=== PATIENT | female | born 1935 | race Caucasian/White ===

== ENCOUNTER 2018-02-22 12:09 | Day surgery (SDC) | payer MEDICARE ==
[2018-02-22] MEDS: NS 1,000 ML IV (06:00)
[2018-02-22] MEDS ORDERED: PROPOFOL 200 MG/20 ML VIAL As Ordered ×2 (12:11→13:02)
[2018-02-22] MEDS ORDERED: LIDOCAINE 2% INJ 100 MG/5 ML SDV (FOR ANES.) As Ordered (12:12)
[2018-02-22] MEDS ORDERED: GLYCOPYRROLATE INJ 0.2 MG/ML 2 ML VIAL As Ordered (13:44)
== END 2018-02-22 14:32 | disposition home or self-care (01) ==
LOC: M OPP 12:09
DX: Z86.010 Personal history of colon polyps (principal); K57.30 Diverticulosis of large intestine without perforation or abscess without bleeding; D12.6 Benign neoplasm of colon, unspecified
CPT/HCPCS: 45380

== ENCOUNTER 2019-02-23 09:14 | Day surgery (SDC) | payer MEDICARE ==
[~2019-02-23] VITALS: Ht 165.1 cm; Wt 96.1 kg
[~2019-02-23 09:14] MED LIST: ALEN70TA74 PO; ASPI81TA85 PO; LEVO100T5 PO; LISI10TA4 PO; NS 1,000 ML IV ONE; SIMV40TA20 PO
[2019-02-23] MEDS ORDERED: LIDOCAINE 2% INJ 100 MG/5 ML SDV (FOR ANES.) As Ordered ONE (09:28)
[2019-02-23] MEDS ORDERED: PROPOFOL 200 MG/20 ML VIAL As Ordered ONE (09:28)
[2019-02-23 12:45] VITALS: BP 121/61
--- NOTE | 2019-02-23 15:50 | ROOR ---
Patient Name: Fatemeh Johnson Procedure Date: 02/23/2019 10:48 AM Date of : 1935 Age: 83 Room: [facility] Gender: Female Note Status: Finalized Procedure: Colonoscopy Indications: Last colonoscopy: February 2018, Therapeutic procedure for known colon adenoma Providers: Saad Montoya MD Referring MD: Dacia MARAVILLA MD Requesting Provider: Medicines: Monitored Anesthesia Care Complications: No immediate complications. Procedure: Pre-Anesthesia Assessment: - Prior to the procedure, a History and Physical was performed, and patient medications and allergies were reviewed. The patient is competent. The risks and benefits of the procedure and the sedation options and risks were discussed with the patient. All questions were answered and informed consent was obtained. Patient identification and proposed procedure were verified by the physician, the nurse and the anesthesiologist in the procedure room. Mental Status Examination: alert and oriented. CV Examination: regular rate and rhythm. Prophylactic Antibiotics: The patient does not require prophylactic antibiotics. Prior Anticoagulants: The patient has taken no previous anticoagulant or antiplatelet agents. ASA Grade Assessment: II - A patient with mild systemic disease. After reviewing the risks and benefits, the patient was deemed in satisfactory condition to undergo the procedure. The anesthesia plan was to use monitored anesthesia care (MAC). Immediately prior to administration of medications, the patient was re-assessed for adequacy to receive sedatives. The heart rate, respiratory rate, oxygen saturations, blood pressure, adequacy of pulmonary ventilation, and response to care were monitored throughout the procedure. The physical status of the patient was re-assessed after the procedure. The Colonoscope was introduced through the anus and advanced to the cecum, identified by appendiceal orifice and ileocecal valve. The colonoscopy was performed without difficulty. The patient tolerated the procedure well. The quality of the bowel preparation was excellent. Findings: The perianal and digital rectal examinations were normal. A 6 mm polyp was found in the distal ascending colon. The polyp was sessile. The polyp was removed with a hot snare. Resection and retrieval were complete. Estimated blood loss: none. A 25 mm polyp was found at 80 cm proximal to the anus. The polyp was carpet-like. Polypectomy was attempted, initially using a hot snare. Polyp resection was incomplete with this device. This intervention then required a different device and polypectomy technique. The polyp was removed with a cold snare. Polyp resection was incomplete. The resected tissue was retrieved. I attempted to remove the polyp with the hot snare after injecting eleview but the snare slipped over the polyp rather than resecting tissue. I removed multiple fragments with the jumbo forceps and then also removed fragments with the cold snare and hot snare. Portions of the polyp were then cauterized with the tip of the snare. Area was tattooed with an injection of 3 mL of Spot (carbon black) in three aliquots proximal to the polyp. Multiple medium-mouthed diverticula were found in the splenic flexure, transverse colon, hepatic flexure and ascending colon. Many medium-mouthed diverticula were found in the sigmoid colon and descending colon. Impression: - One 6 mm polyp in the distal ascending colon, removed with a hot snare. Resected and retrieved. - One 25 mm polyp at 80 cm proximal to the anus, removed with a cold snare. Incomplete resection. Resected tissue retrieved. Tattooed. - Diverticulosis at the splenic flexure, in the transverse colon, at the hepatic flexure and in the ascending colon. - Diverticulosis in the sigmoid colon and in the descending colon. Recommendation: - Discharge patient to home. - Resume previous diet. - Continue present medications. - Await pathology results. - Return to my office at appointment to be scheduled. Saad Montoya MD Saad Montoya MD 02/23/2019 12:33:33 PM Electronically signed by Saad Montoya MD Number of Addenda: 0 Note Initiated On: 02/23/2019 10:48 AM Estimated Blood Loss: Estimated blood loss was minimal.
== END 2019-02-23 12:53 | disposition home or self-care (01) ==
LOC: M OPP 09:14
PROVIDERS: ATTEND Surgery
DX: K57.30 Diverticulosis of large intestine without perforation or abscess without bleeding (principal); K63.5 Polyp of colon; Z86.010 Personal history of colon polyps; Z09 Encounter for follow-up examination after completed treatment for conditions other than malignant neoplasm

== ENCOUNTER → 2020-01-24 | Outpatient (REF) | payer MEDICARE ==
[~2020-01-24] MED LIST changes: -ASPI81TA85 PO; +ASPI81TA86 PO; -NS 1,000 ML IV ONE
== END ==
LOC: M LAB REF 17:57
PROVIDERS: ATTEND Physician Assistant
DX: D23.4 Other benign neoplasm of skin of scalp and neck (principal)

== ENCOUNTER → 2020-11-14 | Outpatient (REF) | payer MEDICARE ==
[~2020-11-14] MED LIST changes: -ALEN70TA74 PO; +ALEN70TA82 PO; +LISI10TA22 PO; -LISI10TA4 PO
[2020-11-16 17:07] LABS: Lyme Disease IgG/IgM Antibodie <0.91 ISR (0.00-0.90); Lyme Disease IgM Ab Quantitati <0.80 index (0.00-0.79)
== END ==
LOC: M LAB REF 16:54
PROVIDERS: ATTEND Internal Medicine
DX: M15.9 Polyosteoarthritis, unspecified (principal); M25.50 Pain in unspecified joint

== ENCOUNTER → 2020-12-12 | Outpatient (REF) | payer MEDICARE ==
[~2020-12-12] MED LIST changes: +PRED5PAK PO; +ROSU5TAB5 PO
== END ==
LOC: M LAB REF 11:11
PROVIDERS: ATTEND Internal Medicine
DX: M15.9 Polyosteoarthritis, unspecified (principal)

== ENCOUNTER → 2020-12-21 | Outpatient (CLI) | payer MEDICARE | LOC: M LABSMTC 09:42 | PROVIDERS: ATTEND Anesthesiology | DX: Z01.812 Encounter for preprocedural laboratory examination (principal); Z20.822 Contact with and (suspected) exposure to COVID-19 ==

== ENCOUNTER 2020-12-26 08:22 | Day surgery (SDC) | payer MEDICARE ==
[~2020-12-26] VITALS: Ht 165.1 cm; Wt 94.8 kg
[~2020-12-26 08:22] MED LIST changes: +LIDOCAINE 2% 100MG/5ML SDV (FOR ANES.) As Ordered ONE; +NS 1,000 ML IV ONE; +propofoL 200 MG/20 ML VIAL As Ordered ONE
--- NOTE | 2020-12-26 10:00 | ROOR ---
Patient Name: Fatemeh Johnson Procedure Date: 12/26/2020 9:19 AM Date of : 1935 Age: 85 Room: [facility] Gender: Female Note Status: Finalized Procedure: Colonoscopy Indications: High risk colon cancer surveillance: Personal history of adenoma (10 mm or greater in size), Last colonoscopy: February 2019 Providers: Saad Montoya MD Referring MD: Dacia MARAVILLA MD Requesting Provider: Medicines: Monitored Anesthesia Care Complications: No immediate complications. Procedure: Pre-Anesthesia Assessment: - Prior to the procedure, a History and Physical was performed, and patient medications and allergies were reviewed. The patient is competent. The risks and benefits of the procedure and the sedation options and risks were discussed with the patient. All questions were answered and informed consent was obtained. Patient identification and proposed procedure were verified by the physician, the nurse and the maintenance craftsman in the procedure room. Mental Status Examination: alert and oriented. Prophylactic Antibiotics: The patient does not require prophylactic antibiotics. Prior Anticoagulants: The patient has taken no previous anticoagulant or antiplatelet agents. ASA Grade Assessment: III - A patient with severe systemic disease. After reviewing the risks and benefits, the patient was deemed in satisfactory condition to undergo the procedure. The anesthesia plan was to use monitored anesthesia care (MAC). Immediately prior to administration of medications, the patient was re-assessed for adequacy to receive sedatives. The heart rate, respiratory rate, oxygen saturations, blood pressure, adequacy of pulmonary ventilation, and response to care were monitored throughout the procedure. The physical status of the patient was re-assessed after the procedure. The Colonoscope was introduced through the anus and advanced to the cecum, identified by appendiceal orifice and ileocecal valve. The colonoscopy was performed without difficulty. The patient tolerated the procedure well. The quality of the bowel preparation was excellent. Findings: The perianal and digital rectal examinations were normal. Many medium-mouthed diverticula were found in the entire colon. A 4 mm polyp was found at 85 cm proximal to the anus. The polyp was sessile. The polyp was removed with a cold snare. Resection and retrieval were complete. Estimated blood loss was minimal. A 20 mm polyp was found at 50 cm proximal to the anus. The polyp was sessile. Biopsies were taken with a cold forceps for histology. Estimated blood loss was minimal. This polyp is consistent with a recurrence at the site of her piecemeal resection of 2 years ago. The dark marking of the SPOT marker was just proximal to this. Impression: - Diverticulosis in the entire examined colon. - One 4 mm polyp at 85 cm proximal to the anus, removed with a cold snare. Resected and retrieved. - One 20 mm polyp at 50 cm proximal to the anus. Biopsied. Recommendation: - Discharge patient to home. - Resume previous diet. - Continue present medications. - Await pathology results. - Return to endoscopist as previously scheduled. Procedure Code(s): --- Professional --- 69795, Colonoscopy, flexible; with removal of tumor(s), polyp(s), or other lesion(s) by snare technique 96459, 59, Colonoscopy, flexible; with biopsy, single or multiple Diagnosis Code(s): --- Professional --- Z86.010, Personal history of colonic polyps K63.5, Polyp of colon K57.30, Diverticulosis of large intestine without perforation or abscess without bleeding CPT copyright 2019 [employer]. All rights reserved. The codes documented in this report are preliminary and upon sterile technician review may be revised to meet current compliance requirements. Saad Montoya MD Saad Montoya MD 12/26/2020 9:59:42 AM Electronically signed by Saad Montoya MD Number of Addenda: 0 Note Initiated On: 12/26/2020 9:19 AM Estimated Blood Loss: Estimated blood loss was minimal.
[2020-12-26 10:10] VITALS: BP 154/66
== END 2020-12-26 10:21 | disposition home or self-care (01) ==
LOC: M OPP 08:22
PROVIDERS: ATTEND Surgery
DX: Z12.11 Encounter for screening for malignant neoplasm of colon (principal); Z86.010 Personal history of colon polyps; D12.6 Benign neoplasm of colon, unspecified; K57.30 Diverticulosis of large intestine without perforation or abscess without bleeding; Z79.899 Other long term (current) drug therapy

== ENCOUNTER → 2021-02-12 | Outpatient (REF) | payer MEDICARE ==
[~2021-02-12] MED LIST changes: -LIDOCAINE 2% 100MG/5ML SDV (FOR ANES.) As Ordered ONE; -NS 1,000 ML IV ONE; -propofoL 200 MG/20 ML VIAL As Ordered ONE
== END ==
LOC: M LAB REF 12:05
PROVIDERS: ATTEND Internal Medicine
DX: M35.3 Polymyalgia rheumatica (principal)

== ENCOUNTER → 2021-02-19 | Outpatient (CLI) | payer MEDICARE ==
--- NOTE | 2021-03-02 22:03 | DEXAMM ---
INDICATION: OSTEO SCREREN. COMPARISON: 01/25/2019, 03/08/2003 TECHNIQUE: Bone density was measured using dual-energy x-ray absorptionmetry (DEXA). FINDINGS: AP SPINE L1-L4 BMD 1.04 g/cm2 Young Adult T-Score -1.2 Age Matched Z-Score 0.7. LT FEMUR, TOTAL BMD 0.86 g/cm2 Young Adult T-Score X -1.1 Age Matched Z-Score 1.1. LT NECK BMD 0.78 g/cm2 Young Adult T-Score -1.8 Age Matched Z-Score 0.5. RT FEMUR, TOTAL BMD 0.85 g/cm2 Young Adult T-Score -1.2 Age Matched Z-Score 1.0. RT NECK BMD 0.77 g/cm2 Young Adult T-Score -1.9 Age Matched Z-Score 0.4. IMPRESSION: There is low bone density of the spine. There is low bone density of the left hip. There is low bone density of the right hip. The density of the spine has remains stable since the initial exam on 03/08/2003. The density of the spine increased 3% since most recent exam on 01/25/2019. The density of the left hip has decreased 9% since initial exam on 03/08/2003. The density of the left hip has increased 5% since most recent exam on 01/25/2019. The density of the right hip has decreased 10% since the initial exam on 03/08/2003. The density of the right hip has increased 5% since the most recent exam on 01/25/2019. FOLLOW-UP: Recommendation for the next bone density exam: 2 years. <Electronically signed by Herve Sol > 03/02/21 [id number]
== END ==
LOC: M WHC 08:51
PROVIDERS: ATTEND Internal Medicine
DX: M85.89 Other specified disorders of bone density and structure, multiple sites (principal)

== ENCOUNTER → 2021-02-24 | Outpatient (REF) | payer MEDICARE | LOC: M LAB REF 13:56 | PROVIDERS: ATTEND Physician Assistant | DX: C44.41 Basal cell carcinoma of skin of scalp and neck (principal); L57.0 Actinic keratosis ==

== ENCOUNTER → 2021-08-26 | Outpatient (REF) | payer MEDICARE | LOC: M LAB REF 16:20 | PROVIDERS: ATTEND Internal Medicine | DX: M35.3 Polymyalgia rheumatica (principal) ==

== ENCOUNTER → 2021-09-25 | Outpatient (REF) | payer MEDICARE | LOC: M LAB REF 11:34 | PROVIDERS: ATTEND Internal Medicine | DX: M35.3 Polymyalgia rheumatica (principal) ==

== ENCOUNTER → 2021-10-27 | Outpatient (REF) | payer MEDICARE | LOC: M LAB REF 14:34 | PROVIDERS: ATTEND Internal Medicine | DX: M35.3 Polymyalgia rheumatica (principal) ==

== ENCOUNTER → 2021-12-09 | Outpatient (REF) | payer MEDICARE | LOC: M LAB REF 16:11 | PROVIDERS: ATTEND Internal Medicine | DX: M35.3 Polymyalgia rheumatica (principal) ==

== ENCOUNTER → 2022-02-13 | Outpatient (REF) | payer MEDICARE | LOC: M LAB REF 12:08 | PROVIDERS: ATTEND Internal Medicine | DX: M35.3 Polymyalgia rheumatica (principal) ==

== ENCOUNTER → 2022-09-01 | Outpatient (REF) | payer MEDICARE | LOC: M LAB REF 13:42 | PROVIDERS: ATTEND Internal Medicine | DX: M35.3 Polymyalgia rheumatica (principal) ==

== ENCOUNTER → 2022-10-02 | Outpatient (REF) | payer MEDICARE | LOC: M LAB REF 12:18 | PROVIDERS: ATTEND Internal Medicine | DX: M35.3 Polymyalgia rheumatica (principal) ==

== ENCOUNTER 2022-10-26 08:15 | Day surgery (SDC) | payer MEDICARE ==
[~2022-10-26] VITALS: Ht 167.6 cm; Wt 96.8 kg
[~2022-10-26 08:15] MED LIST changes: +ARTH650T17 PO; +NS 1,000 ML IV ONE; +PRED1TABL PO
[2022-10-26] MEDS ORDERED: propofoL 500 MG/50 ML VIAL As Ordered ONE (09:25)
[2022-10-26] MEDS ORDERED: LIDOCAINE 2% 100MG/5ML SDV (FOR ANES.) As Ordered ONE (09:25)
[2022-10-26 10:16] VITALS: BP 149/70; O2SAT 99
== END 2022-10-26 10:17 | disposition home or self-care (01) ==
LOC: M OPP 08:15
PROVIDERS: ATTEND Surgery
DX: Z86.010 Personal history of colon polyps (principal); D12.6 Benign neoplasm of colon, unspecified; K57.30 Diverticulosis of large intestine without perforation or abscess without bleeding; Z87.891 Personal history of nicotine dependence; Z79.1 Long term (current) use of non-steroidal anti-inflammatories (NSAID); Z79.52 Long term (current) use of systemic steroids; Z79.890 Hormone replacement therapy

== ENCOUNTER → 2022-11-03 | Outpatient (REF) | payer MEDICARE ==
[~2022-11-03] MED LIST changes: -NS 1,000 ML IV ONE
== END ==
LOC: M LAB REF 12:27
PROVIDERS: ATTEND Internal Medicine
DX: M35.3 Polymyalgia rheumatica (principal)

== ENCOUNTER → 2022-12-02 | Outpatient (REF) | payer MEDICARE | LOC: M LAB REF 12:22 | PROVIDERS: ATTEND Internal Medicine | DX: M35.3 Polymyalgia rheumatica (principal) ==

== ENCOUNTER → 2023-02-22 | Outpatient (CLI) | payer MEDICARE | LOC: M WHC 09:10 | PROVIDERS: ATTEND Internal Medicine | DX: Z13.820 Encounter for screening for osteoporosis (principal); M85.88 Other specified disorders of bone density and structure, other site ==

== ENCOUNTER → 2023-02-23 | Outpatient (REF) | payer MEDICARE | LOC: M LAB REF 16:17 | PROVIDERS: ATTEND Internal Medicine | DX: M35.3 Polymyalgia rheumatica (principal) ==

== ENCOUNTER → 2025-01-19 | Outpatient (CLI) | payer MEDICARE ==
[~2025-01-19] MED LIST changes: +PRED-1142 PO; -PRED1TABL PO; +ROSU5TAB49 PO; -ROSU5TAB5 PO
== END ==
LOC: M PLAIMG 11:51
PROVIDERS: ATTEND Internal Medicine
DX: M51.361 Other intervertebral disc degeneration, lumbar region with lower extremity pain only (principal); M85.88 Other specified disorders of bone density and structure, other site; M79.661 Pain in right lower leg

== ENCOUNTER → 2025-02-26 | Outpatient (CLI) | payer MEDICARE | LOC: M WHC 10:02 | PROVIDERS: ATTEND Internal Medicine | DX: M81.0 Age-related osteoporosis without current pathological fracture (principal) ==